=== PATIENT | male | born 1955 | race African-American/Black ===

== ENCOUNTER 2018-05-23 15:30 | Emergency (ER) | payer MEDICARE, MEDICAID ==
[~2018-05-23] VITALS: Ht 165.1 cm; Wt 93.1 kg
[2018-05-23 16:10] VITALS: BP 178/88
== END 2018-05-23 16:11 | disposition home or self-care (01) ==
LOC: ER 15:31
DX: I10 Essential (primary) hypertension (principal)
CPT/HCPCS: 93005; 99283

== ENCOUNTER 2020-12-29 10:26 | Emergency (ER) | payer MEDICARE, OTHER ==
[~2020-12-29] VITALS: Ht 165.1 cm; Wt 83.4 kg
[~2020-12-29 10:26] MED LIST: APIX5TAB3 PO; ATEN-169 PO; ATOR20TA PO; BRIM5DRO16 OP; CLON0.1T2 PO; DORZ10DR10 RIGHTEYE; INSU100V9 SQ; KEN0.1O TP; LAMO100T2 PO; LISI20TA28 PO; PANT20TA2 PO; XAL0.005OS OP
[2020-12-29 11:15] VITALS: BP 164/85
[2020-12-29] MEDS ORDERED: normal saline 1000ML IV soln IVB ONE (11:40)
--- NOTE | 2020-12-29 12:22 | NUR ---
LAB AT BEDSIDE TO ATTEMPT BLOOD DRAW X3.
[2020-12-29 12:41] LABS: BASOPHILS # (AUTO) 0.1 X10'3 (0-0.2); BASOPHILS % (AUTO) 1.1 % (0-1); EOSINOPHILS # (AUTO) 0.1 X10'3 (0-0.9); EOSINOPHILS % (AUTO) 1.7 % (0-6); HEMATOCRIT 28.2 % (42.0-52.0); HEMOGLOBIN 9.3 g/dl (14.0-17.9); LYMPHOCYTES # (AUTO) 1.3 X10'3 (1.1-4.8); LYMPHOCYTES % (AUTO) 18.8 % (21-51); MEAN CORPUSCULAR HEMOGLOBIN 28.8 PG (27.0-31.0); MEAN CORPUSCULAR HGB CONC 32.8 g/dL (33.0-36.5); MEAN CORPUSCULAR VOLUME 87.8 FL (78-98); MEAN PLATELET VOLUME 9.4 FL (7.4-10.4); MONOCYTES # (AUTO) 0.6 X10'3 (0-0.9); MONOCYTES % (AUTO) 9.1 % (2-12); NEUTROPHILS # (AUTO) 4.6 X10'3 (1.8-7.7); NEUTROPHILS % (AUTO) 69.3 % (42-75); PLATELET COUNT 216 X10'3 (140-440); RED BLOOD COUNT 3.21 X10'6 (4.70-6.10); RED CELL DISTRIBUTION WIDTH 14.2 % (11.5-14.5); WHITE BLOOD COUNT 6.7 X10'3 (4.5-11.0)
[2020-12-29 12:49] LABS: PARTIAL THROMBOPLASTIN TIME 31 SECONDS (22-32)
[2020-12-29 12:51] LABS: ALANINE AMINOTRANSFERASE 17 U/L (12-78); ALBUMIN 3.1 G/DL (3.4-5.0); ALBUMIN/GLOBULIN RATIO 0.7 (1.1-1.5); ALKALINE PHOSPHATASE 78 IU/L (46-116); ANION GAP 16 (8-16); ASPARTATE AMINO TRANSFERASE 16 U/L (10-37); BILIRUBIN,TOTAL 0.2 MG/DL (0.1-1.0); BLOOD UREA NITROGEN 46 MG/DL (7-18); BUN/CREATININE RATIO 7.6 (5.4-32.0); CALCIUM 7.6 MG/DL (8.5-10.1); CHLORIDE 106 MMOL/L (99-107); CREATININE 6.05 MG/DL (0.60-1.10); GLUCOSE 164 MG/DL (70-104); POTASSIUM 4.3 MMOL/L (3.5-5.1); SODIUM 140 MMOL/L (135-145); TOTAL CARBON DIOXIDE 18.2 MMOL/L (24-32); TOTAL PROTEIN 7.6 G/DL (6.4-8.2); eGFR 11 ML/MIN
== END 2020-12-29 13:45 | disposition home or self-care (01) ==
LOC: ER 10:26
DX: I12.9 Hypertensive chronic kidney disease with stage 1 through stage 4 chronic kidney disease, or unspecified chronic kidney disease (principal); N18.9 Chronic kidney disease, unspecified; R00.2 Palpitations; R42 Dizziness and giddiness; R55 Syncope and collapse; R06.02 Shortness of breath; Z79.4 Long term (current) use of insulin; Z79.899 Other long term (current) drug therapy
CPT/HCPCS: 36415; 71045; 80053; 83880; 84484; 85025; 85610; 85730; 93005; 96360; 99285; J7030

== ENCOUNTER 2022-09-26 15:46 | Emergency (ER) | payer MEDICARE, OTHER ==
[~2022-09-26] VITALS: Ht 165.1 cm; Wt 77.0 kg
[~2022-09-26 15:46] MED LIST changes: +AMLO10TA13 PO; -APIX5TAB3 PO; +ASPI81TA52 PO; -ATEN-169 PO; +ATEN50TA2 PO; -ATOR20TA PO; +ATOR20TA66 PO; +BRIM5DRO16 EACHEYE; -BRIM5DRO16 OP; -CLON0.1T2 PO; +DORZ10DR10 EACHEYE; -DORZ10DR10 RIGHTEYE; -INSU100V9 SQ; -KEN0.1O TP; +LAMO100T PO; -LAMO100T2 PO; +LANTUS SQ; +LATA2.5D14 EACHEYE; -LISI20TA28 PO; +METO5SOL PO; +ONDA4TAB12 PO; -PANT20TA2 PO; +PANT40TA54 PO; -XAL0.005OS OP
[2022-09-26] MEDS ORDERED: LIDOcaine 4% (40 mg/ml) topical solution 50ml TP ONE (17:10)
[2022-09-26] MEDS ORDERED: tranexamic acid 100mg/ml inj. TP ONE (17:10)
[2022-09-26] MEDS ORDERED: cloNIDine 0.1 mg tablet PO ONE (17:10)
[2022-09-26] MEDS ORDERED: AMOX-117 PO (17:43)
[2022-09-26] MEDS ORDERED: ondansetron 4mg rapidly disintigrating tab PO ONE (19:20)
--- NOTE | 2022-09-26 19:26 | NUR ---
PT VOMITED 250ML BLLOD AND CLOTS APON DISCHARGE. MD INFORMED, PO ZOFRAN GIVEN
[2022-09-26 19:27] VITALS: BP 174/94
== END 2022-09-26 19:42 | disposition home or self-care (01) ==
LOC: ER 15:47
DX: R04.0 Epistaxis (principal); I12.9 Hypertensive chronic kidney disease with stage 1 through stage 4 chronic kidney disease, or unspecified chronic kidney disease; E11.22 Type 2 diabetes mellitus with diabetic chronic kidney disease; N18.9 Chronic kidney disease, unspecified; Z79.82 Long term (current) use of aspirin; Z79.01 Long term (current) use of anticoagulants; Z79.4 Long term (current) use of insulin; Z79.899 Other long term (current) drug therapy
CPT/HCPCS: 30901; 99284

== ENCOUNTER 2022-10-01 18:08 | Emergency (ER) | payer MEDICARE, OTHER ==
[~2022-10-01] VITALS: Ht 165.1 cm; Wt 77.2 kg
[~2022-10-01 18:08] MED LIST changes: +AMOX-117 PO
[2022-10-01 18:12] VITALS: BP 199/88
== END 2022-10-01 19:31 | disposition home or self-care (01) ==
LOC: ER 18:09
DX: R04.0 Epistaxis (principal); E11.22 Type 2 diabetes mellitus with diabetic chronic kidney disease; I12.9 Hypertensive chronic kidney disease with stage 1 through stage 4 chronic kidney disease, or unspecified chronic kidney disease; N18.9 Chronic kidney disease, unspecified; Z79.2 Long term (current) use of antibiotics; Z79.82 Long term (current) use of aspirin; Z79.4 Long term (current) use of insulin; Z79.899 Other long term (current) drug therapy
CPT/HCPCS: 99281

== ENCOUNTER 2023-02-02 04:17 | Emergency (ER) | payer MEDICARE, OTHER ==
[~2023-02-02] VITALS: Ht 165.1 cm; Wt 76.8 kg
[~2023-02-02 04:17] MED LIST changes: -AMOX-117 PO; -ASPI81TA52 PO; -BRIM5DRO16 EACHEYE; +BRIM5DRO6 EACHEYE
[2023-02-02 05:07] LABS: EOSINOPHILS # (AUTO) 0.2 X10'3 (0-0.9); EOSINOPHILS % (AUTO) 5.1 % (0-6); HEMOGLOBIN 12.9 g/dl (14.0-17.9); MEAN CORPUSCULAR HEMOGLOBIN 28.4 PG (27.0-31.0); RED BLOOD COUNT 4.53 X10'6 (4.70-6.10)
[2023-02-02 05:09] LABS: BASOPHILS % (AUTO) 1.2 % (0-1); HEMATOCRIT 39.4 % (42.0-52.0); LYMPHOCYTES # (AUTO) 0.8 X10'3 (1.1-4.8); LYMPHOCYTES % (AUTO) 21.3 % (21-51); MEAN CORPUSCULAR HGB CONC 32.6 g/dL (33.0-36.5); MEAN PLATELET VOLUME 9.6 FL (7.4-10.4); MONOCYTES # (AUTO) 0.4 X10'3 (0-0.9); MONOCYTES % (AUTO) 9.5 % (2-12); NEUTROPHILS # (AUTO) 2.5 X10'3 (1.8-7.7); NEUTROPHILS % (AUTO) 62.9 % (42-75); PLATELET COUNT 101 X10'3 (140-440); RED CELL DISTRIBUTION WIDTH 17.1 % (11.5-14.5)
[2023-02-02 05:14] LABS: ALANINE AMINOTRANSFERASE 21 U/L (12-78); ALBUMIN 3.2 G/DL (3.4-5.0); ALBUMIN/GLOBULIN RATIO 0.8 (1.1-1.5); ALKALINE PHOSPHATASE 106 IU/L (46-116); ANION GAP 13 (8-16); ASPARTATE AMINO TRANSFERASE 24 U/L (10-37); BILIRUBIN,TOTAL 0.4 MG/DL (0.1-1.0); BLOOD UREA NITROGEN 65 MG/DL (7-18); BUN/CREATININE RATIO 4.5 (10.0-20.0); CALCIUM 9.4 MG/DL (8.5-10.1); CHLORIDE 99 MMOL/L (99-107); CREATININE 14.57 MG/DL (0.60-1.10); GLUCOSE 143 MG/DL (70-104); POTASSIUM 4.6 MMOL/L (3.5-5.1); SODIUM 135 MMOL/L (135-145); TOTAL CARBON DIOXIDE 23.3 MMOL/L (24-32); TOTAL PROTEIN 7.1 G/DL (6.4-8.2); eGFR 4 ML/MIN
[2023-02-02 06:44] VITALS: BP 157/82
== END 2023-02-02 08:30 | disposition left against medical advice (07) ==
LOC: ER 04:18
DX: R06.02 Shortness of breath (principal); Z53.21 Procedure and treatment not carried out due to patient leaving prior to being seen by health care provider
CPT/HCPCS: 36415; 71045; 80053; 83880; 84484; 85025; 93005; 99281